=== PATIENT | male | born 1945 | race Caucasian/White ===

== ENCOUNTER 2016-05-13 11:22 | Emergency (ER) | payer MEDICARE, OTHER ==
[~2016-05-13] VITALS: Ht 175.3 cm; Wt 77.1 kg
[2016-05-13] MEDS ORDERED: [UNRECOGNIZED DRUG - CODE] PO (11:40)
[2016-05-13] MEDS ORDERED: POTA10CA43 PO (11:40)
[2016-05-13] MEDS ORDERED: AMLO10TA4 PO (11:40)
[2016-05-13] MEDS ORDERED: ROPI1TAB40 PO (11:40)
[2016-05-13] MEDS ORDERED: IPRA4AER IH (11:40)
[2016-05-13] MEDS ORDERED: NCT21TD TD (11:40)
[2016-05-13] MEDS ORDERED: FURO20TA4 PO (11:40)
[2016-05-13] MEDS ORDERED: SIMV40TA PO (11:40)
[2016-05-13] MEDS ORDERED: MULT-974 PO (11:40)
[2016-05-13] MEDS ORDERED: CEFD300C3 PO (11:40)
[2016-05-13] MEDS ORDERED: RT-ALBUTEROL/IPRATROPIUM 3 ML (DUONEB) VIAL INH ONE (12:00)
[2016-05-13] MEDS ORDERED: DEXAMETHASONE 4 MG/ML SDV (DECADRON) IH ONE (12:00)
[2016-05-13] MEDS ORDERED: methylPREDNISolone 125 MG (Solu-MEDROL) VIAL IVP ONE (12:00)
[2016-05-13 12:11] LABS: BASOPHILS # (AUTO) 0.1 10^3/uL (0.0-0.1); BASOPHILS % (AUTO) 1 % (0-10); EOSINOPHILS # (AUTO) 0.8 10^3/uL (0.0-0.3); EOSINOPHILS % (AUTO) 11 % (0-10); LYMPHOCYTES # (AUTO) 1.1 X 10^3 (1.0-4.0); LYMPHOCYTES % (AUTO) 14 % (12-44); MEAN CORPUSCULAR HEMOGLOBIN 29 PG (25-34); MEAN CORPUSCULAR HGB CONC 33 G/DL (32-36); MEAN CORPUSCULAR VOLUME 88 FL (80-99); MEAN PLATELET VOLUME 10.1 FL (7.4-10.4); MONOCYTES # (AUTO) 0.7 X 10^3 (0.0-1.0); MONOCYTES % (AUTO) 9 % (0-12); NEUTROPHILS # (AUTO) 5.2 X 10^3 (1.8-7.8); NEUTROPHILS % (AUTO) 65 % (42-75); PLATELET COUNT 308 10^3/uL (130-400); RED BLOOD COUNT 3.45 10^6/uL (4.35-5.85); RED CELL DISTRIBUTION WIDTH 15.8 % (10.0-14.5); WHITE BLOOD COUNT 7.9 10^3/uL (4.3-11.0)
--- NOTE | 2016-05-13 12:11 | ED Respiratory ---
General Chief Complaint: Respiratory Problems Stated Complaint: SOA Nursing Triage Note: pt reports soa x 2 weeks. Source: patient (PT IS VERY LIMITED/POOR HISTORIAN AND GIVES VERY MINIMAL INFORMATION ABOUT CURRENT PROBLEM AND PMH. ), EMS, other (DR. MARCIAL AT [facility] AND RECORDS FROM DIALYSIS CENTER) History of Present Illness Time seen by provider: 11:22 Initial Comments PT ARRIVES VIA EMS FROM [facility] PT HAS HAD SHORTNESS OF BREATH FOR THE LAST 2 WEEKS HAS CHRONIC COUGH, NO DIFFERENT TODAY NO FEVER NO CHEST PAIN NO INCREASE IN CHRONIC LEG SWELLING PER DR. MARCIAL, PT WAS SEEN BY DR. RAMESH A WEEK AGO AND WAS TOLD THAT HE MIGHT HAVE COPD AND WAS GIVEN RX'S FOR OMNICEF, AND DUONEB NEBULIZER PT WAS SEEN AGAIN THIS AM BY DR. RAMESH AND REPORTEDLY O2 SATS WERE 83-84% ON ROOM AIR, THEN WENT UP TO LOW 90'S PER DR. RAMESH'S OFFICE, PT WAS SENT /INSTRUCTED TO GO DIRECTLY TO [facility], BUT PT REFUSED TO GO AND CAME HERE TO DIALYSIS IN [place] INSTEAD PT THEN WENT TO DIALYSIS--NO REPORT OF O2 SAT OR ANY OTHER VITALS BEING DONE THERE. PT STATES HE USED DUONEB AT 0400 THIS AM AND IT HELPS PT CONTINUES TO SMOKE UP TO [address] MARCIAL, PT WAS STARTED ON HEMODIALYSIS IN FEBRUARY 2016 FOR GLOMERULONEPHRITIS, AND IS IN PROCESS OF BEING TRAINED IN PERITONEAL DIALYSIS DAILY, BUT AT ONLY 1/2 NORMAL AMOUNT / TIME--NOT REPORTED TO ME WHEN THIS BEGAN. PT HAS GAINED 2 KG, BUT IN WHAT TIME FRAME IS UNKNOWN. NO DIALYSIS WAS DONE TODAY-IS UNCLEAR WHY NOT. DR. MARCIAL ADVISES THAT PT NEEDS TO BE TRANSFERRED TO [place]. 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 Olivares" DOES INPATIENT CARE AND ADVISED TO ADMIT TO HIM. PCP: DR. RAMESH Allergies and Home Medications Allergies Coded Allergies: No Known Drug Allergies (Unverified , 05/13/16) Home Medications Albuterol/Ipratropium 4 Gm Aero 2 PUFF IH QID (Reported) Amlodipine Besylate 10 Mg Tablet 10 MG PO DAILY (Reported) Cefdinir 300 Mg Capsule 300 MG PO BID (Reported) Furosemide 20 Mg Tablet 60 MG PO BID (Reported) Multivitamin 1 Each Tablet 1 EACH PO DAILY (Reported) Nicotine 1 Each Patch.td24 21 MG TD DAILY (Reported) Potassium Chloride 10 Meq Capsule.er 10 MEQ PO DAILY (Reported) Ropinirole HCl 1 Mg Tablet 1 MG PO DAILY (Reported) Simvastatin 40 Mg Tablet 40 MG PO DAILY (Reported) Vitamin B Complex 1 Each Tablet.er 1 EACH PO DAILY (Reported) Constitutional: No chills, No diaphoresis, No fever EENTM: no symptoms reported Respiratory: see HPI cough dyspnea on exertion short of breath Cardiovascular: see HPINo chest pain, edemaNo palpitations, No syncope, No vascular heart diseas Gastrointestinal: no symptoms reported Genitourinary: no symptoms reported Musculoskeletal: see HPI (SWELLING) Skin: no symptoms reported Psychiatric/Neurological: No Symptoms Reported Hematologic/Lymphatic: No Symptoms Reported Immunological/Allergic: no symptoms reported Past Ugwlhbf-Ypeevf-Vkialr Hx Patient Social History Alcohol Use: Regular Use (HEAVY/REGULAR USE-ABUSE--STATES NONE SINCE 03/01/16, PER PT ON 05/13/16) Recreational Drug Use: No Smoking Status: Current Everyday Smoker (3 PPD) Type Used: Cigarettes Recent Foreign Travel: No Contact w/Someone Who Travel: No Recent Infectious Disease Expo: No Recent Hopitalizations: No Surgeries HX Surgeries: Yes (DIALYSIS CATHETER/PERITONEAL DIALYSIS CATHETER) Surgeries: Gallbladder Respiratory Hx Respiratory Disorders: Yes (POSSIBLE COPD) Respiratory Disorders: COPD Cardiovascular Hx Cardiac Disorders: Yes Cardiac Disorders: Atrial Fibrillation, Chronic Edema/Swelling, Coronary Artery Disease, High Cholesterol, Hypertension Neurological Hx Neurological Disorders: Yes (CVA X 2) Genitourinary Hx Genitourinary Disorders: Yes (GLOMERULONEPHRITIS) Genitourinary Disorders: Renal Failure Gastrointestinal Hx Gastrointestinal Disorders: No Musculoskeletal Hx Musculoskeletal Disorders: No Endocrine Hx Endocrine Disorders: No HEENT HX ENT Disorders: No Cancer Hx Cancer: No Psychosocial Hx Psychiatric Problems: No Integumentary HX Skin/Integumentary Disorder: No Blood Transfusions Hx Blood Disorders: No Physical Exam Vital Signs Vital Sign - Last 12Hours 05/13/16 11:28 Temp 99.1 Pulse 92 Resp 21 B/P 129/76 Pulse Ox 94 O2 Delivery Nasal Cannula O2 Flow Rate 2 FiO2 89 Capillary Refill : Less Than 3 Seconds General Appearance: WD/WN other (MILDLY DYSNPEIC AT REST, MODERATE DYSPNEA WITH MINIMAL EFFORT--TRANSFERRING FROM EMS CART TO ER CART) HEENT: PERRL/EOMI Neck: normal inspection Respiratory: wheezing (DIFFUSE BILBASILAR EXPIRATORY WHEEZING. ) Cardiovascular: regular rate, rhythm no murmurNo JVD Gastrointestinal: non tender soft other (PERITONEAL DIALYSIS PORT/TUBING IN PLACE IN ABDOMEN) Extremities: no calf tenderness pedal edema (2+ EDEMA BILATERALLY) Neurologic/Psychiatric: door manager II-XII nml as tested no motor/sensory deficits alert oriented x 3 other (SOMEWHAT HOSTILE. POOR HISTORIAN) Skin: normal color Progress/Results/Core Measures Results/Orders Lab Results Laboratory Tests Test 05/13/16 12:01 05/13/16 12:04 Range/Units Activated Partial Thromboplast Time 39 H 24-35 SEC Alanine Aminotransferase (ALT/SGPT) 25 0-55 U/L Albumin 3.4 3.2-4.5 G/DL Alkaline Phosphatase 225 H 40-136 U/L Anion Gap 14 5-14 MMOL/L Aspartate Amino Transf (AST/SGOT) 41 H 5-34 U/L B-Type Natriuretic Peptide 1032.8 H <100.0 PG/ML BUN/Creatinine Ratio 8 Basophils # (Auto) 0.1 0.0-0.1 10^3/uL Basophils (%) (Auto) 1 0-10 % Blood Urea Nitrogen 57 H 7-18 MG/DL Calcium Level 8.8 8.5-10.1 MG/DL Carbon Dioxide Level 22 21-32 MMOL/L Chloride Level 100 98-107 MMOL/L Creatine Kinase MB 5.0 <6.6 NG/ML Creatinine 7.31 H 0.60-1.30 MG/DL Eosinophils # (Auto) 0.8 H 0.0-0.3 10^3/uL Eosinophils (%) (Auto) 11 H 0-10 % Estimat Glomerular Filtration Rate 7 Glucose Level 83 70-105 MG/DL Hematocrit 30 L 40-54 % Hemoglobin 9.9 L 13.3-17.7 G/DL INR Comment 1.1 0.8-1.4 Lymphocytes # (Auto) 1.1 1.0-4.0 X 10^3 Lymphocytes (%) (Auto) 14 12-44 % Magnesium Level 1.7 L 1.8-2.4 MG/DL Mean Corpuscular Hemoglobin 29 25-34 PG Mean Corpuscular Hemoglobin Concent 33 32-36 G/DL Mean Corpuscular Volume 88 80-99 FL Mean Platelet Volume 10.1 7.4-10.4 FL Monocytes # (Auto) 0.7 0.0-1.0 X 10^3 Monocytes (%) (Auto) 9 0-12 % Neutrophils # (Auto) 5.2 1.8-7.8 X 10^3 Neutrophils (%) (Auto) 65 42-75 % Platelet Count 308 130-400 10^3/uL Potassium Level 4.9 3.6-5.0 MMOL/L Prothrombin Time 14.1 12.2-14.7 SEC Red Blood Count 3.45 L 4.35-5.85 10^6/uL Red Cell Distribution Width 15.8 H 10.0-14.5 % Sodium Level 136 135-145 MMOL/L Total Bilirubin 0.4 0.1-1.0 MG/DL Total Creatine Kinase 158 30-200 U/L Total Protein 7.4 6.4-8.2 G/DL Troponin I < 0.30 <0.30 NG/ML White Blood Count 7.9 4.3-11.0 10^3/uL Santana Test YES-POS Arterial Blood Base Excess 0.0 -2.5-2.5 MMOL/L Arterial Blood HCO3 24 23-27 MMOL/L Arterial Blood Oxygen Saturation 96 94-100 % Arterial Blood Partial Pressure CO2 35 35-45 MMHG Arterial Blood Partial Pressure O2 71 L 79-93 MMHG Arterial Blood Total CO2 24.9 21.0-31.0 MMOL/L Arterial Blood pH 7.44 H 7.37-7.43 Blood Gas Inspired Oxygen 6 OXYMASK Blood Gas Patient Temperature 97.4 Blood Gas Puncture Site RT RAD Blood Gas Ventilator Setting NO Micro Results Microbiology 05/13/16 Blood Culture - Preliminary, Resulted No growth 05/13/16 Blood Culture - Preliminary, Resulted No growth 05/13/16 Influenza Types A,B Antigen (GENARO) - Final, Complete My Orders Orders-LUANNE BENAVIDES DO Saline Lock/Iv-Start (05/13/16 11:31) Ekg Tracing (05/13/16 11:31) O2 (05/13/16 11:31) Monitor-Rhythm Ecg Trace Only (05/13/16 11:31) Arterial Blood Gas (05/13/16 12:04) BNP (05/13/16 11:31) Cbc With Automated Diff (05/13/16 11:31) Comprehensive Metabolic Panel (05/13/16 11:31) Creatine Kinase (05/13/16 11:31) Creatine Kinase Mb (05/13/16 11:31) Magnesium (05/13/16 11:31) Protime With Inr (05/13/16 11:31) Partial Thromboplastin Time (05/13/16 11:31) Troponin I (05/13/16 11:31) Blood Culture (05/13/16 11:31) Influenza A And B Antigens (05/13/16 11:31) Chest Pa/Lat (2 View) (05/13/16 11:31) Albuterol/Ipra Inhalation Soln (Duoneb I (05/13/16 12:00) Dexamethasone Injection (Decadron Inject (05/13/16 12:00) Rt Request For Service (05/13/16 11:51) Svn Sm Volume Nebulizer Rt-Rfs (05/13/16 11:51) Methylprednisolone Sod Succ (Solu-Medrol (05/13/16 12:00) Medications Given in ED Vital Signs/I&O Vital Sign - Last 12Hours 05/13/16 05/13/16 05/13/16 05/13/16 11:28 11:28 12:09 15:12 Temp 99.1 Pulse 92 100 Resp 21 18 B/P 129/76 Pulse Ox 94 96 95 O2 Delivery Nasal Cannula Nasal Cannula O2 Flow Rate 2 2 6 6 FiO2 89 Blood Pressure Mean: 93 Progress Note : Progress Note DECREASED WHEEZING, INCREASED AERATION AFTER NEB TREATMENT AND PT STATES HE FEELS BETTER, BUT IS STILL DYSPNEIC AT REST O2 SATS REMAIN IN 90'S ON O2 VIA MASK DURING ER STAY NO DETERIORATION IN PT'S CONDITION DURING ER STAY ECG Initial ECG Impression Time: 11:46 Initial ECG Rate: 88 Initial ECG Rhythm: Normal Sinus (IVCD) Initial ECG Comparisson: No Previous ECG Available Diagnostic Imaging Comments CXR--CHF, PULMONARY VENOUS CONGESTION AND BILATERAL PULMONARY EDEMA, MILD BILATERAL PLEURAL FLUID--PER RADIOLOGIST REPORT @ 1325 Departure Communication Progress Notes 1328--CALLED [place] DIRECT CALL, PT PREFERENCE. PAGING PHOTOENGRAVING PHOTOGRAPHER REPAIR TABLE OPERATOR OR "DR. Olivares" 1343--SPOKE WITH DR. Pettit"--HE ACCEPTS PT FOR TRANSFER TO [place]. NOW PAGING HOSPITALIST. 1349--SPOKE WITH DR. ANDRE, HOSPITALIST. ACCEPTS PT FOR ADMIT. Impression Impression: Primary Impression: FLUID OVERLOAD IN DIALYSIS PT Additional Impression: Hypoxia Disposition: [facility] Condition: Stable LUANNE BENAVIDES DO May 13, 2016 12:11 Comments CXR--CHF, PULMONARY VENOUS CONGESTION AND BILATERAL PULMONARY EDEMA, MILD BILATERAL PLEURAL FLUID--PER RADIOLOGIST REPORT @ 1325 Departure Communication Progress Notes 1328--CALLED [place] DIRECT CALL, PT PREFERENCE. PAGING PHOTOENGRAVING PHOTOGRAPHER REPAIR TABLE OPERATOR OR "DR. Olivares" 1343--SPOKE WITH DR. Pettit"--HE ACCEPTS PT FOR TRANSFER TO [place]. NOW PAGING HOSPITALIST. 1349--SPOKE WITH DR. ANDRE HOSPITALIST. ACCEPTS PT FOR ADMIT. Impression Impression: Primary Impression: FLUID OVERLOAD IN DIALYSIS PT Additional Impression: Hypoxia Disposition: [facility] Condition: Stable LUANNE BENAVIDES DO May 13, 2016 12:11 LUANNE BENAVIDES DO May 13, 2016 12:11
[2016-05-13 12:13] LABS: ABG HCO3 24 MMOL/L (23-27); ABG OXYGEN SATURATION 96 % (94-100); ABG PCO2 35 MMHG (35-45); ABG PH 7.44 (7.37-7.43); ABG PO2 71 MMHG (79-93); ABG TCO2 24.9 MMOL/L (21.0-31.0)
[2016-05-13 12:22] LABS: INR 1.1 (0.8-1.4); PROTHROMBIN TIME PATIENT 14.1 SEC (12.2-14.7)
[2016-05-13 12:29] LABS: ALLENS TEST YES-POS; PATIENT TEMP 97.4
[2016-05-13 12:31] LABS: ALANINE AMINOTRANSFERASE 25 U/L (0-55); ALBUMIN 3.4 G/DL (3.2-4.5); ANION GAP 14 MMOL/L (5-14); ASPARTATE AMINO TRANSFERASE 41 U/L (5-34); BILIRUBIN,TOTAL 0.4 MG/DL (0.1-1.0); BLOOD UREA NITROGEN 57 MG/DL (7-18); BUN/CREATININE RATIO 8; CALCIUM 8.8 MG/DL (8.5-10.1); CARBON DIOXIDE 22 MMOL/L (21-32); CHLORIDE 100 MMOL/L (98-107); CREATINE KINASE 158 U/L (30-200); CREATININE SERUM 7.31 MG/DL (0.60-1.30); GFR ESTIMATED 7; GLUCOSE 83 MG/DL (70-105); MAGNESIUM 1.7 MG/DL (1.8-2.4); POTASSIUM 4.9 MMOL/L (3.6-5.0); SODIUM 136 MMOL/L (135-145); TOTAL PROTEIN 7.4 G/DL (6.4-8.2)
[2016-05-13 12:37] LABS: TROPONIN I < 0.30 NG/ML (<0.30)
--- NOTE | 2016-05-13 13:13 | Diagnostic Imaging Report ---
INDICATION: Dyspnea. PA and lateral views of the chest are obtained. There is no previous study for comparison. FINDINGS: There is mild generalized cardiomegaly and pulmonary venous congestion. Interstitial markings are prominent in both lungs. There is also blunting of the costophrenic sulci bilaterally. No pneumothorax identified. Dual lumen right jugular central venous catheter extends to the level of the right atrium. IMPRESSION: Findings are suggestive of congestive heart failure with pulmonary venous congestion and bilateral pulmonary edema. Mild bilateral pleural fluid is present as well. Dictated by: Dictated on workstation # [id number]
[2016-05-13 15:12] VITALS: BP 150/90
== END 2016-05-13 15:12 | disposition short-term general hospital (02) ==
LOC: ER 11:27
DX: E87.70 Fluid overload, unspecified (principal); I13.2 Hypertensive heart and chronic kidney disease with heart failure and with stage 5 chronic kidney disease, or end stage renal disease; N18.6 End stage renal disease; Z99.2 Dependence on renal dialysis; J44.9 Chronic obstructive pulmonary disease, unspecified; I48.2 Chronic atrial fibrillation; I25.10 Atherosclerotic heart disease of native coronary artery without angina pectoris; F17.210 Nicotine dependence, cigarettes, uncomplicated; Z79.899 Other long term (current) drug therapy
CPT/HCPCS: 36415; 71020; 80053; 82550; 82553; 82805; 83735; 83880; 84484; 85025; 85610; 85730; 87040; 87804; 93005; 93041; 94640; 96374

== ENCOUNTER → 2016-06-15 | Outpatient (CLI) | payer MEDICARE, OTHER ==
[~2016-06-15] VITALS: Ht 175.3 cm; Wt 77.1 kg
[~2016-06-15] MED LIST: AMLO10TA4 PO; CEFD300C3 PO; FURO20TA4 PO; IPRA4AER IH; LIDOCAINE 1% INJ 20 ML (XYLOCAINE) VIAL ONE; MULT-974 PO; NCT21TD TD; POTA10CA43 PO; ROPI1TAB40 PO; SIMV40TA PO; [UNRECOGNIZED DRUG - CODE] PO
[2016-06-15 09:20] VITALS: BP 134/88
[2016-06-15 10:01] VITALS: BP 128/87
--- NOTE | 2016-06-15 11:18 | Diagnostic Imaging Report ---
INDICATION: Removal of right IJ tunneled dialysis catheter with fluoroscopic assistance. FLUOROSCOPY TIME: 2 seconds of fluoroscopy time was utilized. CONSENT: The patient was informed of the procedure including risks and benefits and all questions were answered. The patient gave an informed consent for the procedure. HISTORY: 70-year-old patient on peritoneal dialysis, not using the catheter anymore. The barrel raiser helper, Dr. Corral, referred the patient for removal of the dialysis catheter. TECHNIQUE/FINDINGS: The right internal jugular tunneled catheter is normal in position and appearance with no fracture seen on the initial assessment with fluoroscopy. Utilizing 1% lidocaine, a small incision about 1 cm in size was made over the entry site. Blunt dissection into the cuff was performed and the tissue around the cuff was dissected and divided with an 11 blade until the catheter was released from the tissues surrounding its tunnel. Then the catheter was pulled out while holding pressure continued for 5 minutes at the venous entry site. The catheter pulled was intact with no fractures. Minimal thrombus and a fibrin sheath were seen at the distal end of the catheter. Then, 2-0 silk sutures where utilized to close the catheter entry and incision site. The patient was instructed to return in a week for suture removal. No immediate complications. A sterile dressing was applied at the site. IMPRESSION: Removal of the right internal jugular dialysis catheter was performed. Dictated by: Dictated on workstation # [id number]
== END ==
LOC: RAD 08:54
PROVIDERS: ATTEND Internal Medicine
DX: Z45.2 Encounter for adjustment and management of vascular access device (principal); N18.6 End stage renal disease

== ENCOUNTER 2016-10-12 12:26 | Outpatient (CLI) | payer MEDICARE ==
[~2016-10-12 12:26] MED LIST changes: -LIDOCAINE 1% INJ 20 ML (XYLOCAINE) VIAL ONE
[2016-10-12] MEDS ORDERED: RT-ALBUTEROL SULF 2.5 MG/3 ML PRE-MIX VIAL IH ONE (14:30)
== END 2016-10-12 15:45 | disposition home or self-care (01) ==
LOC: RAD 12:26 → RT 15:45
PROVIDERS: ATTEND Nurse Practitioner Family
DX: G47.50 Parasomnia, unspecified (principal); R53.83 Other fatigue; J44.9 Chronic obstructive pulmonary disease, unspecified; F17.200 Nicotine dependence, unspecified, uncomplicated
CPT/HCPCS: 94060; 94640; 94729

== ENCOUNTER 2017-03-24 08:16 | Day surgery (SDC) | payer MEDICARE ==
[~2017-03-24] VITALS: Ht 175.3 cm; Wt 74.8 kg
[2017-03-24] VITALS (14 sets, daily range): BP systolic 106–164; BP diastolic 42–73
[~2017-03-24 08:16] MED LIST changes: -NCT21TD TD; +NICO-588 TD
[2017-03-24] MEDS ORDERED: LIDOCAINE 2% VISCOUS 15 ML UDC ONE (08:22)
[2017-03-24] MEDS ORDERED: NS IV 1000 ML 1,000 ML ONE (08:23)
[2017-03-24] MEDS ORDERED: NS IV 1000 ML 1,000 ML IV SCH (08:25)
[2017-03-24 09:00] LABS: HEMOGLOBIN 10.2 G/DL (13.3-17.7); MEAN PLATELET VOLUME 9.4 FL (7.4-10.4); RED BLOOD COUNT 3.21 10^6/uL (4.35-5.85); RED CELL DISTRIBUTION WIDTH 13.9 % (10.0-14.5); WHITE BLOOD COUNT 13.9 10^3/uL (4.3-11.0)
[2017-03-24] MEDS ORDERED: fentaNYL INJECTION 100 MCG/2 ML AMP ONE (09:10)
[2017-03-24] MEDS ORDERED: MIDAZOLAM 5 MG/5 ML (VERSED) VIAL ONE (09:10)
[2017-03-24 09:13] LABS: INR 1.1 (0.8-1.4); PROTHROMBIN TIME PATIENT 14.5 SEC (12.2-14.7)
--- NOTE | 2017-03-24 09:17 | Diagnostic Imaging Report ---
EXAMINATION: Portable erect AP chest at 0844 hours. INDICATION: Respiratory distress, pre-MARK. FINDINGS: The heart size is within normal limits and the heart has decreased in size since the prior exam of 05/13/2016. The atelectasis/infiltrate and fluid involving the lung bases seen on the prior study have also resolved. There are still coarse interstitial densities in the right lung. These are most likely chronic in nature. There is no evidence for failure, pneumonia, or for a pleural effusion to indicate an acute abnormality. The mediastinum is not widened. The osseous structures are intact. There is deformity of several of the lower ribs on the right. Most likely, this is a sequela of prior trauma. The triple lumen catheter on the right seen previously has been removed. IMPRESSION: There are chronic pulmonary changes evident as well as prior trauma to the right thorax. There is no sign of an acute abnormality, however. Dictated by: Dictated on workstation # [id number]
[2017-03-24 09:21] LABS: ALBUMIN 3.4 GM/DL (3.2-4.5); BILIRUBIN,TOTAL 0.3 MG/DL (0.1-1.0); CALCIUM 9.8 MG/DL (8.5-10.1); CREATININE SERUM 13.19 MG/DL (0.60-1.30); POTASSIUM 3.5 MMOL/L (3.6-5.0); TOTAL PROTEIN 7.2 GM/DL (6.4-8.2)
[2017-03-24] MEDS ORDERED: DOCU-143 PO (09:35)
[2017-03-24] MEDS ORDERED: FERR325T24 PO (09:35)
[2017-03-24] MEDS ORDERED: ASPI-983 PO (09:35)
[2017-03-24] MEDS ORDERED: MIDO10TA PO (09:35)
[2017-03-24] MEDS ORDERED: CYAN500T2 PO (09:35)
[2017-03-24] MEDS ORDERED: PANT40TA2 PO (09:35)
[2017-03-24] MEDS ORDERED: MELA3TAB PO (09:35)
[2017-03-24] MEDS ORDERED: POLY17PO6 PO (09:35)
== END 2017-03-24 12:13 | disposition home or self-care (01) ==
LOC: CATH 08:16 → SURG 09:58 → CATH 12:13
PROVIDERS: ATTEND Internal Medicine Cardiovascular Disease
DX: I48.91 Unspecified atrial fibrillation (principal); I65.23 Occlusion and stenosis of bilateral carotid arteries; I12.0 Hypertensive chronic kidney disease with stage 5 chronic kidney disease or end stage renal disease; N18.6 End stage renal disease; I25.10 Atherosclerotic heart disease of native coronary artery without angina pectoris; E78.5 Hyperlipidemia, unspecified; Z99.2 Dependence on renal dialysis; J44.9 Chronic obstructive pulmonary disease, unspecified; F17.210 Nicotine dependence, cigarettes, uncomplicated; G47.33 Obstructive sleep apnea (adult) (pediatric); Z79.899 Other long term (current) drug therapy; Z11.2 Encounter for screening for other bacterial diseases
CPT/HCPCS: 36415; 71045; 80053; 80061; 85027; 85610; 85730; 87081; 93005; 93320; 93325

== ENCOUNTER 2017-04-19 09:51 | Day surgery (SDC) | payer MEDICARE ==
[~2017-04-19] VITALS: Ht 175.3 cm; Wt 72.6 kg
[~2017-04-19 09:51] MED LIST changes: +ASPI-983 PO; +CYAN500T2 PO; +DOCU-143 PO; +FERR325T24 PO; +MELA3TAB PO; +MIDO10TA PO; +PANT40TA2 PO; +POLY17PO6 PO
[2017-04-19 09:59] VITALS: BP 128/89
[2017-04-19] MEDS ORDERED: NS IV 500 ML 500 ML IV PRN (10:20)
[2017-04-19] MEDS ORDERED: HEParin (CENTRAL IV FLUSH) 500 UNIT/5 ML SYR ONE ×2 (11:04→12:54)
[2017-04-19] MEDS ORDERED: BUPIVACAINE 0.5% 30 ML (SENSORCAINE) VIAL ONE (11:04)
[2017-04-19] MEDS ORDERED: LIDOCAINE 1% INJ 20 ML (XYLOCAINE) VIAL ONE (11:05)
[2017-04-19] MEDS ORDERED: 0.9% SODIUM CHLORIDE PF INJ 20 ML VIAL ONE ×2 (11:05→12:50)
[2017-04-19] MEDS ORDERED: ceFAZolin 1,000 MG (ANCEF) VIAL ONE (11:25)
[2017-04-19] MEDS ORDERED: NS (IVPB) 50 ML ONE (11:25)
[2017-04-19 11:41] LABS: CALCIUM 9.1 MG/DL (8.5-10.1); CREATININE SERUM 8.46 MG/DL (0.60-1.30); POTASSIUM 3.7 MMOL/L (3.6-5.0)
[2017-04-19] MEDS ORDERED: proPOfol 200 MG/20 ML (DIPRIVAN) VIAL IV ONE (11:44)
[2017-04-19] MEDS ORDERED: fentaNYL INJECTION 100 MCG/2 ML AMP ONE (11:44)
[2017-04-19] MEDS ORDERED: LIDOCAINE PF 2% 5 ML (XYLOCAINE) VIAL ONE (11:44)
[2017-04-19] MEDS ORDERED: ceFAZolin 1 GM/NS 50 ML IVPB IV ONE ×2 (11:45)
[2017-04-19] MEDS ORDERED: CATHETER FLUSH 10 ML SYR IV PRN (11:45)
--- NOTE | 2017-04-19 12:01 | Progress Note-Pre Operative ---
Pre-Operative Progress Note H&P Reviewed The H&P was reviewed, patient examined and no changes noted. Date Seen by Provider: Apr 19, 2017 Time Seen by Provider: 11:30 Date H&P Reviewed: Apr 19, 2017 Time H&P Reviewed: 11:30 Pre-Operative Diagnosis: kidney failure, malfunction tunneled hemodialysis catheter SUE WELCH DO Apr 19, 2017 12:01
[2017-04-19] MEDS ORDERED: ONDANSETRON 4 MG/2 ML (SDV) Z0FRAN ONE (12:17)
[2017-04-19] MEDS ORDERED: PHENYLEPHRINE 100 MCG/ML 10 ML (ANESTHESIA) SYR ONE (12:17)
[2017-04-19] MEDS ORDERED: ASPI-808 PO (12:21)
[2017-04-19] MEDS ORDERED: ACHD5005 PO (12:21)
[2017-04-19] MEDS ORDERED: NIFE-7 PO (12:21)
--- NOTE | 2017-04-19 13:06 | Discharge Inst-Simple/Standard ---
Discharge Inst-Standard Patient Instructions/Follow Up Plan of Care/Instructions/FU: 2 weeks Marce Activity as Tolerated: No Discharge Diet: Regular Diet Other Inst to Patient Follow up Appt: Make appointment for 2 week. Instructions: No lifting greater than 10 pounds. No strenuous activity. May shower in 24 hours, no tub bath or soaking. Use incentive spirometer at home as directed. No Smoking Skin/Wound Care: Keep area clean and dry. Keep bandage clean, change as needed. Symptoms to Report: Appetite Changes, Extremity Discoloration, Numbness/Tingling, Swelling Increased , Bleeding Excessive, Eyesight Changes, Pain Increased, Urine Color Change, Constipation(Persistent), Fever over 101 degree F, Pain/Pressure in chest, Urinating Difficulty, Cough Up/Vomit Blood, Heart Beat Irreg/Pounding, Pain/ Pressure in jaw, Vaginal Bleeding Increase, Cramps in feet or legs, Lightheadedness, Pain/Pressure in shoulder, Diarrhea(Persistent), Memory Changes Suddenly, Questions/Concerns, Weight gain consecutive days, Dizziness/ Fainting, Nausea/Vomiting, Shortness of Breath, Weight gain over 2 pounds If questions or concerns contact your physician Or seek help at emergency department. SUE WELCH DO Apr 19, 2017 13:06
--- NOTE | 2017-04-19 13:08 | Progress Note-Post Operative ---
Post-Operative Progess Note Surgeon (s)/Route Salesman And Driver (s) Surgeon SUE WELCH DO Route Salesman And Driver: na Pre-Operative Diagnosis kidney failure, malfunction tunneled hemodialysis catheter Post-Operative Diagnosis same Procedure & Operative Findings Date of Procedure 04/19/17 Procedure Performed/Findings placement u/s guided right IJ hemodialysis catheter and removal of left subclavian hemodialysis catheter. Anesthesia Type gen Estimated Blood Loss Estimated blood loss (mL): min Specimens/Packing Specimens Removed none SUE WELCH DO Apr 19, 2017 13:08
--- NOTE | 2017-04-19 13:23 | Diagnostic Imaging Report ---
INDICATION: Hemodialysis catheter placement. FINDINGS: Fluoroscopy was provided in the OR for hemodialysis catheter placement. 22 seconds fluoroscopy time was utilized. Single image demonstrates bilateral dialysis lines with tips overlying the SVCs. IMPRESSION: Fluoroscopy for dialysis line placements. Dictated by: Dictated on workstation # [id number]
[2017-04-19 13:50] VITALS: BP 127/59
--- NOTE | 2017-04-19 13:54 | Diagnostic Imaging Report ---
CLINICAL INDICATION: Patient is status post hemodialysis catheter placement. EXAM: Portable chest x-ray, upright view. COMPARISON: Portable chest x-ray, upright view, dated 03/24/2017. FINDINGS: There has been interval placement of a vascular access catheter overlying the right chest with the tip overlying the expected region of the high right atrial region. There is no pneumothorax or pleural effusion. There is mild pulmonary vascular congestion. The cardiac silhouette is at the upper limits of normal size. There is mildly increased density in both lung bases which may represent atelectasis versus infiltrate. There is right curvature of the thoracic spine again seen. IMPRESSION: 1. Interval placement of a vascular access catheter overlying the right chest with the tip overlying the expected region of the high right atrium. There is no pneumothorax. 2. There is mild pulmonary vascular congestion and the cardiac silhouette is at the upper limits of normal size. 3. There is mild increased opacification of both lung bases which may represent atelectasis versus infiltrate. Dictated by: Dictated on workstation # [id number]
[2017-04-19 14:20] VITALS: BP 124/73
[2017-04-19 14:30] VITALS: BP 124/73
--- NOTE | 2017-04-20 12:05 | OPERATIVE REPORT ---
DATE OF SERVICE: 04/19/2017 PREOPERATIVE DIAGNOSES: 1. Kidney failure, malfunctioning. 2. Hemodialysis catheter. PROCEDURE: Placement of right internal jugular hemodialysis catheter, ultrasound-guided and removal of subclavian hemodialysis catheter. SURGEON: Sue Zheng DO. ANESTHESIA: General. ESTIMATED BLOOD LOSS: Minimal. COMPLICATIONS: None. INDICATIONS: The patient is a 71-year-old male on hemodialysis. He has previously placed catheter at the left subclavian, is not getting velocities that are acceptable for dialysis. Dr. Corral has requested that this catheter be removed and a new tunnel catheter be placed. The patient was explained the risks and benefits of procedure and wished to proceed with procedure. Consent was signed in the chart. PROCEDURE: The patient was taken to the operating suite, was prepped and draped in sterile fashion. Surgical pause was performed. Using ultrasound guidance, the right internal jugular vein was accessed, dark nonpulsatile blood was withdrawn. The syringe was removed and the guidewire was inserted into the internal jugular vein. Fluoroscopy assured proper placement. This was then secured. Local anesthetic was used to infiltrate the area for tunneling. A #11 blade scalpel was used to make a stab incision at the insertion point and also a stab incision on the right chest. A 19 cm 14.5-Pashto Palindrome catheter was then tunneled from the chest up to the wire incision. Serial dilations are made over the guidewire under fluoroscopy until the dilator sheath was then advanced over the guidewire and the dilator and the wire were removed. The catheter was then inserted through the sheath and the sheath was removed. Both catheters were accessed and job blood easily without any difficulty and flushed without difficulty. There have been flushed with saline and then heparin. Using 3-0 nylon, the catheter was secured to the right chest and the small stab incisions were closed in a simple interrupted fashion. At this time, the left subclavian catheter had the sutures removed and the hemostat was used to dissect around the cuff and the catheter was able to be removed in its entirety. Pressure was held close to 10 minutes and hemostasis was achieved. The area was washed and dried, sterile bandages were applied. The patient tolerated the procedure well without any complications and taken to recovery room in stable condition. Chest x-ray is pending. Job ID: [id number] DocumentID: [id number] Dictated Date: 04/19/2017 22:56:19 Patient Intake Coordinator Date: 04/20/2017 06:36:04 Dictated By: SUE ZHENG DO
== END 2017-04-19 14:30 | disposition home or self-care (01) ==
LOC: SDC 09:51
PROVIDERS: ATTEND Surgery
DX: N18.6 End stage renal disease (principal); Z11.2 Encounter for screening for other bacterial diseases; F17.210 Nicotine dependence, cigarettes, uncomplicated; I12.0 Hypertensive chronic kidney disease with stage 5 chronic kidney disease or end stage renal disease; Z79.899 Other long term (current) drug therapy; E78.5 Hyperlipidemia, unspecified; J44.9 Chronic obstructive pulmonary disease, unspecified; Z86.73 Personal history of transient ischemic attack (TIA), and cerebral infarction without residual deficits; Z79.82 Long term (current) use of aspirin
CPT/HCPCS: 36415; 71045; 80048; 87081

== ENCOUNTER 2017-09-14 11:49 | Outpatient (CLI) | payer MEDICARE ==
[~2017-09-14] VITALS: Ht 175.3 cm; Wt 70.3 kg
[~2017-09-14 11:49] MED LIST changes: +ACHD5005 PO; +ASPI-808 PO; +NIFE30TA89 PO
[2017-09-14 12:13] VITALS: BP 119/55
[2017-09-14] MEDS ORDERED: FERR-84 PO (12:19)
[2017-09-14] MEDS ORDERED: CYAN100088 PO (12:19)
[2017-09-14] MEDS ORDERED: CALC-654 PO (12:19)
== END 2017-09-14 15:00 | disposition home or self-care (01) ==
LOC: PREOP 11:49
PROVIDERS: ATTEND Otolaryngology Otolaryngology/Facial Plastic Surgery
DX: Z01.818 Encounter for other preprocedural examination (principal)
CPT/HCPCS: 87081; 93005

== ENCOUNTER 2017-09-16 06:31 | Day surgery (SDC) | payer MEDICARE ==
[~2017-09-16] VITALS: Ht 175.3 cm; Wt 70.3 kg
[~2017-09-16 06:31] MED LIST changes: +CALC-654 PO; +CYAN100088 PO; +FERR-84 PO; +NS IV 500 ML 500 ML IV PRN
[2017-09-16 06:45] VITALS: BP 130/56
--- NOTE | 2017-09-16 07:01 | Progress Note-Pre Operative ---
Pre-Operative Progress Note H&P Reviewed The H&P was reviewed, patient examined and no changes noted. 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
[2017-09-16] MEDS ORDERED: MUPIROCIN 2% OINT 22 GM (BACTROBAN) TUBE ONE (07:19)
[2017-09-16] MEDS ORDERED: LIDOCAINE/EPI 1%-1:200,000 (XYLOCAINE) 10 ML VIAL ONE (07:19)
[2017-09-16] MEDS ORDERED: ONDANSETRON 4 MG/2 ML (SDV) Z0FRAN ONE (07:25)
[2017-09-16] MEDS ORDERED: SEVOFLURANE (ULTANE) 15 ML INHAL SOLN ONE (07:25)
[2017-09-16] MEDS ORDERED: DEXAMETHASONE 10 MG/ML (DECADRON) 1 ML VIAL ONE (07:25)
[2017-09-16] MEDS ORDERED: LIDOCAINE PF 2% 5 ML (XYLOCAINE) VIAL ONE (07:25)
[2017-09-16] MEDS ORDERED: proPOfol 200 MG/20 ML (DIPRIVAN) VIAL IV ONE (07:25)
[2017-09-16] MEDS ORDERED: fentaNYL INJECTION 100 MCG/2 ML AMP ONE (07:26)
[2017-09-16] MEDS ORDERED: BSS 15 ML ONE (08:12)
[2017-09-16] MEDS ORDERED: ceFAZolin 1,000 MG (ANCEF) VIAL ONE (08:12)
--- NOTE | 2017-09-16 08:48 | Progress Note-Post Operative ---
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 Specimen(s) collected/removed left nasal denys lesion with clear margins LESLEY RDZ MD Sep 16, 2017 8:48 am
[2017-09-16] MEDS ORDERED: RT-ALBUTEROL SULF 2.5 MG/3 ML PRE-MIX VIAL ONE (08:50)
[2017-09-16] MEDS ORDERED: RT-ALBUTEROL SULF 2.5 MG/3 ML PRE-MIX VIAL INH ONE (09:00)
[2017-09-16] MEDS ORDERED: HYDROcodone/APAP 5 MG/325 MG (LORTAB) TAB PO PRN (09:00)
[2017-09-16] MEDS ORDERED: ACETAMINOPHEN 325 MG TABLET PO PRN ×2 (09:00)
[2017-09-16] MEDS: morphine INJ 10 MG/ML 1ML (SYR OR VIAL) IVP PRN ×3 (09:21→09:29)
[2017-09-16 10:00] VITALS: BP 116/45
[2017-09-16 10:30] VITALS: BP 115/51
[2017-09-16 11:00] VITALS: BP 116/55
[2017-09-16] MEDS ORDERED: WARF5TAB PO (11:06)
[2017-09-16] MEDS ORDERED: HYDR-3812 PO (11:06)
[2017-09-16] MEDS ORDERED: CEPH-506 PO (11:06)
--- NOTE | 2017-09-16 12:26 | Anesthesia-General Post-Op ---
General Patient Condition Mental Status/LOC: Same as Preop Cardiovascular: Satisfactory Nausea/Vomiting: Absent Respiratory: Satisfactory Pain: Controlled Complications: Absent Post Op Complications Complications None Follow Up Care/Instructions Patient Instructions None needed. Anesthesia/Patient Condition Patient Condition Patient is doing well, no complaints, stable vital signs, no apparent adverse anesthesia problems. No complications reported per nursing. [place] [facility] [place]: Yes CJ CEDILLO CRNA Sep 16, 2017 12:26
[2017-09-16 13:30] VITALS: BP 132/57
[2017-09-16 14:25] VITALS: BP 132/57
== END 2017-09-16 14:25 | disposition home or self-care (01) ==
LOC: SDC 06:31
PROVIDERS: ATTEND Otolaryngology Otolaryngology/Facial Plastic Surgery
DX: C44.311 Basal cell carcinoma of skin of nose (principal); I25.10 Atherosclerotic heart disease of native coronary artery without angina pectoris; I10 Essential (primary) hypertension; I48.91 Unspecified atrial fibrillation; I08.1 Rheumatic disorders of both mitral and tricuspid valves; J44.9 Chronic obstructive pulmonary disease, unspecified; G47.33 Obstructive sleep apnea (adult) (pediatric); F17.210 Nicotine dependence, cigarettes, uncomplicated; Z79.82 Long term (current) use of aspirin; Z79.899 Other long term (current) drug therapy
CPT/HCPCS: 36415; 84132